=== PATIENT | female | born 2000 | race Caucasian/White ===

== ENCOUNTER → 2021-10-31 | Outpatient (CLI) | payer OTHER ==
[~2021-10-31] MED LIST: ALBU90OI INH; ASPI325 PO; Aspir-Low81 MG PO; Ativan1 MG PO; BUSP5 PO; CEPH500 PO; CYAN500; FERR325 PO; FLUO10 PO; HYDR1TAB94 PO; IBUP800 PO; NEXPLANON68 MG SQ; PROCODE120 PO; Percocet 5-3251 EACH PO; Permethrin60 GM TOP; Permethrin60 GM TP; Prednisone20 MG PO; Verotin-Gr Cap1 EACH PO; Zofran Odt4 MG SL
[2021-11-02 02:11] LABS: CHLAMYDIA TRACHOMATIS, NAA Negative (Negative)
== END | disposition home or self-care (01) ==
LOC: LAB 13:16 → LAB SHORT 13:16
PROVIDERS: Advanced Practice Midwife
DX: Z11.3 Encounter for screening for infections with a predominantly sexual mode of transmission (principal)
CPT/HCPCS: 87491; 87591

== ENCOUNTER → 2023-12-09 | Outpatient (CLI) | payer OTHER ==
[~2023-12-09] MED LIST changes: +ONDA4ODT MM; +PROM25 PO
[2023-12-09 20:21] LABS: Candida Group, PCR NOT DETECTED (NOT DETECT); Candida glabrata-krusei, PCR NOT DETECTED (NOT DETECT)
[2023-12-09 20:55] LABS: Bacterial Vaginosis PCR Positive (NEGATIVE)
== END ==
LOC: LAB SHORT 14:36 → LAB 14:36
PROVIDERS: Advanced Practice Midwife
DX: N76.0 Acute vaginitis (principal)
CPT/HCPCS: 87481; 87661; 87801